=== PATIENT | male | born 1975 ===

== ENCOUNTER 2020-11-03 01:57 | Emergency (ER) | payer SELFPAY ==
[~2020-11-03] VITALS: Ht 177.8 cm; Wt 75.0 kg
[2020-11-03] MEDS ORDERED: SODIUM CHLORIDE FLUSH 10ML SYR IVF ONE (03:00)
[2020-11-03] MEDS ORDERED: ONDANSETRON 2MG/ML, 2ML IVPush ONE (03:00)
[2020-11-03] MEDS ORDERED: SODIUM CHLORIDE 0.9% 1,000ML IVBOLUS ONE (03:00)
[2020-11-03] MEDS ORDERED: ONDANSETRON 2MG/ML, 2ML ONE (03:10)
[2020-11-03 03:25] LABS: BASOPHILS % (AUTO) 2 % (0-1); EOSINOPHILS % (AUTO) 4 % (1-7); LYMPHOCYTES % (AUTO) 34 % (22-44); MEAN CORPUSCULAR HEMOGLOBIN 34.4 pg (27.5-34.5); MEAN CORPUSCULAR HGB CONC 34.4 g/dL (33.2-36.2); MONOCYTES % (AUTO) 10 % (2-9); NEUTROPHILS % (AUTO) 51 % (42-75); PLATELET COUNT 294 x10^3/uL (130-400); RED BLOOD COUNT 4.21 x10^6/uL (4.38-5.82); RED CELL DISTRIBUTION WIDTH 13.4 % (9.4-14.8)
[2020-11-03 03:28] LABS: MD NO
[2020-11-03 03:32] LABS: ALANINE AMINOTRANSFERASE 44 U/L (12-78); ALBUMIN 3.8 g/dL (3.4-5.0); ANION GAP 5 mmol/L (5-15); CALCIUM 8.5 mg/dL (8.5-10.1); CHLORIDE 110 mmol/L (98-107); CREATININE 0.74 mg/dL (0.7-1.3)
[2020-11-03 03:35] LABS: ALKALINE PHOSPHATASE 79 U/L (45-117); BILIRUBIN,TOTAL 0.2 mg/dL (0.2-1.0); TOTAL PROTEIN 7.4 g/dL (6.4-8.2)
--- NOTE | 2020-11-03 06:19 | NUR ---
Pt A&OX4. Contacted pt friend Danae. Danae agreed to pick pt up at discharge
[2020-11-03 06:20] VITALS: BP 103/74
== END 2020-11-03 06:24 | disposition home or self-care (01) ==
LOC: ED 06:00
DX: F10.120 Alcohol abuse with intoxication, uncomplicated (principal); Z72.9 Problem related to lifestyle, unspecified; Y90.9 Presence of alcohol in blood, level not specified
CPT/HCPCS: 36415; 80053; 80320; 85025; 96360; 99283; J7030; G0480

== ENCOUNTER 2020-12-13 23:57 | Emergency (ER) | payer SELFPAY ==
--- NOTE | 2020-12-14 | NUR ---
pt bib remsa to room 1 with primary issue of etoh. pt awakens to painful stimuli and chest sternal rub. airway patent and good aeration and oxygenation. placed on cr monitor, and pt refuses to wake up fully. pushes staff away during vital signs. otherwise is asleep and snoring on occasion. MD aware and to eval pt. no further orders or interventions at this time.
--- NOTE | 2020-12-14 02:29 | NUR ---
pt awake and ambulating in room, using urinal at bedside. also urinated on floor prior to using urinal. total out approx 900 ml. pt back in bed with side rails up and on cr monitor. readvised to not get out of bed without calling for an RN. call light within reach. sitter outside of room.
[2020-12-14 02:30] VITALS: BP 100/60
--- NOTE | 2020-12-14 03:52 | NUR ---
PT STATE WITH RELIEF FROM DILAUDID. PT ON MONITOR, ABLE TO SIT STILL IN BED. LAW ENFORCEMENT AT BEDSIDE. PT REMAINS IN HANDCUFFS. + CSM. REPORT CALLED TO [facility] AND READY FOR ADMIT
--- NOTE | 2020-12-14 04:48 | NUR ---
pt randomly seen walking down the hallways after he got up and left his room. When approached he said he was looking for somewhere to smoke a cigarette. Pt walked back to his room, and d/c instructions were ready. pt a&ox4, ambulatory, no weakness and talkative. Wanted to know where he was found or how he got to the hospital. f/u and d/c instructions given to pt and he ambulated out of the e.r.
== END 2020-12-14 04:51 | disposition home or self-care (01) ==
LOC: EDBD 23:57 → ED 12-14 04:45 → MERGE 12-14 04:59 → ED 12-14 04:59
DX: F10.220 Alcohol dependence with intoxication, uncomplicated (principal); Z72.9 Problem related to lifestyle, unspecified; Y90.9 Presence of alcohol in blood, level not specified
CPT/HCPCS: 99283